=== PATIENT | female | born 1975 | race Caucasian/White ===

== ENCOUNTER 2018-02-05 19:56 | Emergency (ER) | payer OTHER, MEDICAID, SELFPAY ==
[2018-02-05 20:06] VITALS: BP 104/43; PULSE 66; RESP 14; TEMP 36.7; O2SAT 99
--- NOTE | 2018-02-05 20:20 | ED.HA ---
HPI - Headache <Cesar Solano MD - Last Filed: 02/06/18 07:02> General Chief Complaint: Headache Stated Complaint: HARD TO SWALLOW,RUNNY NOSE,HEAD ACHE Time Seen by Provider: 02/05/18 20:19 Related Data Previous Rx's Medication Instructions Recorded cetirizine-pseudoephedrine 1 tab PO Q12H PRN #14 tab 02/05/18 Allergies Allergy/AdvReac Type Severity Reaction Status Date / Time No Known Drug Allergies Allergy Verified 02/05/18 20:12 <Clary Devi PA-C - Last Filed: 02/05/18 21:43> General Source: patient Mode of arrival: ambulatory Limitations: no limitations History of Present Illness HPI Narrative: This 42 y.o. female presents with 2 day history of runny nose and congestion, along with ST (laryngitis and hard to swallow this a.m., better now. She has had some dry cough, maybe slight wheeze Exam <Cesar Solano MD - Last Filed: 02/06/18 07:02> Initial Vital Signs Initial Vital Signs: Vital Signs Temperature 98.1 F 02/05/18 20:06 Pulse Rate 66 02/05/18 20:06 Respiratory Rate 14 02/05/18 20:06 Blood Pressure 104/43 L 02/05/18 20:06 Pulse Oximetry 99 02/05/18 20:06 <Clary Devi PA-C - Last Filed: 02/05/18 21:43> Initial Vital Signs Initial Vital Signs: Vital Signs Temperature 98.1 F 02/05/18 20:06 Pulse Rate 66 02/05/18 20:06 Respiratory Rate 14 02/05/18 20:06 Blood Pressure 104/43 L 02/05/18 20:06 Pulse Oximetry 99 02/05/18 20:06 Course <Cesar Solano MD - Last Filed: 02/06/18 07:02> Orders Ordered: Discontinued Medications Albuterol (Ventolin Hfa Prepack) 1 box MISC SEEINSTR ONE Stop: 02/05/18 20:53 Last Admin: 02/05/18 20:54 Dose: 1 box Vital Signs - 8 hr 02/05/18 20:06 Temperature 98.1 F Pulse Rate 66 Respiratory Rate 14 Blood Pressure 104/43 L Pulse Oximetry 99 <Clary Devi PA-C - Last Filed: 02/05/18 21:43> Orders Ordered: Discontinued Medications Albuterol (Ventolin Hfa Prepack) 1 box MISC SEEINSTR ONE Stop: 02/05/18 20:53 Last Admin: 02/05/18 20:54 Dose: 1 box Vital Signs - 8 hr 02/05/18 20:06 Temperature 98.1 F Pulse Rate 66 Respiratory Rate 14 Blood Pressure 104/43 L Pulse Oximetry 99 Discharge Plan Departure Patient Disposition: Home, Self-Care Clinical Impression: Acute upper respiratory infection, Asthma Discharge Date/Time: 02/05/18 21:43 Interventions: ED Discharge Assessment Last Done: 02/05/18 21:42 Instructions: DI for Asthma -- Adult, DI for Viral Upper Respiratory Infection -- Adult Activity Restrictions/Additional Instructions: This appears most likely to be a viral infection given your exposures. In 7-10 days, however need to be monitoring for worsening asthma symptoms and return if you are acutely worse. Please use the inhaler we gave you as needed. I have also sent an [id number] antihistamine and decongestant to the pharmacy for you in case her insurance will cover it. Prescriptions: New cetirizine-pseudoephedrine 5-120 mg tablet extended release 12 hr 1 tab PO Q12H PRN (Reason: URI/asthma) Qty: 14 RF: 0
--- NOTE | 2018-02-05 20:24 | ED_ITS ---
HPI - Headache <Clary Devi PA-C - Last Filed: 02/05/18 22:18> General Chief Complaint: Headache Stated Complaint: HARD TO SWALLOW,RUNNY NOSE,HEAD ACHE Time Seen by Provider: 02/05/18 20:19 Source: patient Mode of arrival: ambulatory Limitations: no limitations History of Present Illness HPI Narrative: This 42-year-old female comes in today due to 2 day history of sore throat, with difficulty swallowing and laryngitis this morning, better now. Also has had some runny nose, postnasal drip and congestion. She states that she has minimal cough, perhaps some slight wheeze and dyspnea. She does have an history of asthma/COPD and has needed an inhaler in the past but does not have 1 now. She is not having chest pain. She is not having fever. Her 11-year-old daughter became ill with similar symptoms 2 days prior to Leah's , and exposed to an ill friend with similar symptoms prior. She is being seen here with her daughter. She states it is possible that she could be Related Data Previous Rx's Medication Instructions Recorded cetirizine-pseudoephedrine 1 tab PO Q12H PRN #14 tab 02/05/18 Allergies Allergy/AdvReac Type Severity Reaction Status Date / Time No Known Drug Allergies Allergy Verified 02/05/18 20:12 Review of Systems <Clary Devi PA-C - Last Filed: 02/05/18 22:18> Review of Systems All systems reviewed & are unremarkable except as noted in HPI and below Exam <Clary Devi PA-C - Last Filed: 02/05/18 22:18> Narrative Exam Narrative: GENERAL APPEARANCE: Patient sitting comfortably, in no distress. HEAD: No sinus TTP. EYES: PERRL, EOMI. EARS: Normal auditory canals, TMS intact with normal light reflexes. ORAL CAVITY: Normal oropharynx. THROAT: Minimal erythema, PND noted, no exudate NECK/THYROID: Neck supple, full range of motion, no cervical lymphadenopathy. LUNGS: Clear to auscultation bilaterally with slightly coarse breath sounds, no cough on exam. HEART: RRR without murmur, nl S1, S2, no S3 or S4. EXTREMITIES: No cyanosis or edema Initial Vital Signs Initial Vital Signs: Vital Signs Temperature 98.1 F 02/05/18 20:06 Pulse Rate 66 07/16/18 20:06 Respiratory Rate 14 02/05/18 20:06 Blood Pressure 104/43 L 02/05/18 20:06 Pulse Oximetry 99 02/05/18 20:06 <Cesar Solano MD - Last Filed: 02/06/18 06:59> Initial Vital Signs Initial Vital Signs: Vital Signs Temperature 98.1 F 02/05/18 20:06 Pulse Rate 66 02/05/18 20:06 Respiratory Rate 14 02/05/18 20:06 Blood Pressure 104/43 L 02/05/18 20:06 Pulse Oximetry 99 02/05/18 20:06 Course <Clary Devi PA-C - Last Filed: 02/05/18 22:18> Orders Ordered: Discontinued Medications Albuterol (Ventolin Hfa Prepack) 1 box MISC SEEINSTR ONE Stop: 02/05/18 20:53 Last Admin: 02/05/18 20:54 Dose: 1 box Vital Signs - 8 hr 02/05/18 20:06 02/05/18 21:42 Temperature 98.1 F Pulse Rate 66 63 Respiratory Rate 14 18 Blood Pressure 104/43 L 102/62 Pulse Oximetry 99 97 <Cesar Solano MD - Last Filed: 02/06/18 06:59> Orders Ordered: Discontinued Medications Albuterol (Ventolin Hfa Prepack) 1 box MISC SEEINSTR ONE Stop: 02/05/18 20:53 Last Admin: 02/05/18 20:54 Dose: 1 box Vital Signs - 8 hr 02/05/18 20:06 02/05/18 21:42 Temperature 98.1 F Pulse Rate 66 63 Respiratory Rate 14 18 Blood Pressure 104/43 L 102/62 Pulse Oximetry 99 97 MDM - Headache <Clray Devi PA-C - Last Filed: 02/05/18 22:18> Lab Data Attestation: I reviewed the patient's lab results. Point of care urine test negative Discharge Plan Departure Patient Disposition: Home, Self-Care Clinical Impression: Acute upper respiratory infection, Asthma Discharge Date/Time: 02/05/18 21:43 Interventions: ED Discharge Assessment Last Done: 02/05/18 21:42 Instructions: DI for Asthma -- Adult, DI for Viral Upper Respiratory Infection -- Adult Activity Restrictions/Additional Instructions: This appears most likely to be a viral infection given your exposures. In 7-10 days, however need to be monitoring for worsening asthma symptoms and return if you are acutely worse. Please use the inhaler we gave you as needed. I have also sent an [id number] antihistamine and decongestant to the pharmacy for you in case her insurance will cover it. Prescriptions: New cetirizine-pseudoephedrine 5-120 mg tablet extended release 12 hr 1 tab PO Q12H PRN (Reason: URI/asthma) Qty: 14 RF: 0 <Cesar Solano MD - Last Filed: 02/06/18 06:59> Cosign ED Attending Cosignature Attestation: I was present in the ER at the time of this patient's care, I was available for consultation or to see the patient if need be. I agree with the content of the medical record and the disposition.
[2018-02-05] MEDS: ALBUTEROL HFA PREPACK 1 BOX MISC (20:54)
[2018-02-05 21:42] VITALS: BP 102/62; PULSE 63; RESP 18; O2SAT 97
== END 2018-02-05 21:43 | disposition home or self-care (01) ==
PROVIDERS: Emergency Provider Internal Medicine
DX: J06.9 Acute upper respiratory infection, unspecified (principal); J45.909 Unspecified asthma, uncomplicated
CPT/HCPCS: 81025; 99282; 99283